=== PATIENT | male | born 1955 | race Caucasian/White ===

== ENCOUNTER 2018-10-01 15:08 | Emergency (ER) | payer OTHER, SELFPAY ==
--- OUTSIDE RECORDS SUMMARY | 2018-10-01 15:35 | XMS REPORT | Clinical Summary ---
:1955 Author Organization [facility] Address [address] [place] [address] Care Team Providers Name Role Phone Unavailable Primary Care Provider Unavailable Allergies Not on File Medications Not on file Active Problems Not on file Social History Tobacco Use Types Packs/Day Years Used Date Never Assessed Sex Assigned at Date Recorded Not on file Job Start Date Occupation Industry Not on file Not on file Not on file Travel History Travel Start Travel End No recent travel history available. Last Filed Vital Signs Not on file Plan of Treatment Not on file Results Not on fileafter 09/30/2017 Insurance Payer Benefit Plan / Group Subscriber ID Type Phone Address [employer] HMO POS QPOS xxxxxxxxxx HMO/POS [phone] (Work)
--- NOTE | 2018-10-01 17:37 | RAD REPORT ---
EXAM DESCRIPTION: RAD - Hip Right 2 View - 10/01/2018 5:28 pm CLINICAL HISTORY: Trauma, twisting injury, right hip pain COMPARISON: None. FINDINGS: AP and frog-leg views of the right hip were obtained. There is no fracture or dislocation . No acute or destructive bony process seen. No periarticular abnormality seen. No significant degen erative change. IMPRESSION: Negative right hip examination for acute findings.
--- NOTE | 2018-10-01 17:56 | ER ---
Nurse's Notes [facility] Name: Milton Leon Age: 63 yrs Sex: Male : 1955 Arrival Date: 10/01/2018 Time: 15:13 Bed 25 Private MD: Shana Meehan H Diagnosis: Strain of muscle, fascia and tendon of right hip Presentation: 10/01 15:20 Presenting complaint: Patient states: "I think I stepped wrong and twisted my body". Pt aa5 c/o pain to right hip pain, denies fall. 15:20 Transition of care: patient was not received from another setting of care. Onset of aa5 symptoms was October 01, 2018. Care prior to arrival: None. 15:20 Method Of Arrival: Wheelchair aa5 15:20 Acuity: SUZY 4 aa5 15:30 Risk Assessment: Do you want to hurt yourself or someone else? Patient reports no ca1 desire to harm self or others. 15:30 Initial Sepsis Screen: Does the patient meet any 2 criteria? No. Patient's initial ca1 sepsis screen is negative. Does the patient have a suspected source of infection? No. Patient's initial sepsis screen is negative. Historical: - Allergies: 15:54 Demerol; ca1 - Home Meds: 15:54 metoprolol tartrate 50 mg Oral tab 1 tab 2 times per day [Active]; hydrochlorothiazide ca1 25 mg Oral tab 1 tab once daily [Active]; metformin 500 mg Oral tab 1 tab 4 times a day [Active]; amlodipine 10 mg tab 1 tab once daily [Active]; Ibuprofen Oral for PRN [Active]; - PMHx: 15:54 Diabetes - NIDDM; Arthritis; Hypertension; ca1 - PSHx: 15:54 Hip Surgery L; Cholecystectomy; Knee Surgery Both; ca1 - Immunization history:: Flu vaccine is not up to date. - Social history:: Smoking status: Patient/guardian denies using tobacco. - Ebola Screening: : No symptoms or risks identified at this time. Screenin:34 Abuse screen: Denies threats or abuse. Denies injuries from another. Nutritional ca1 screening: No deficits noted. Tuberculosis screening: No symptoms or risk factors identified. Fall Risk None identified. Assessment: 15:34 General: Appears in no apparent distress. comfortable, Behavior is calm, cooperative, ca1 appropriate for age. Pain: Complains of pain in right hip Pain radiates to right thigh Pain currently is 3 out of 10 on a pain scale. at worst was 8 out of 10 on a pain scale. Pain began 30 min ago. Aggravated by weight bearing. Neuro: Level of Consciousness is awake, alert, obeys commands, Oriented to person, place, time, situation. Cardiovascular: Heart tones S1 S2 present Capillary refill < 3 seconds Patient's skin is warm and dry. Respiratory: Airway is patent Respiratory effort is even, unlabored, Respiratory pattern is regular, symmetrical, Breath sounds are clear bilaterally. GI: No deficits noted. No signs and/or symptoms were reported involving the gastrointestinal system. : No deficits noted. No signs and/or symptoms were reported regarding the genitourinary system. EENT: No deficits noted. No signs and/or symptoms were reported regarding the EENT system. Derm: Skin is intact, is healthy with good turgor, Skin is pink, warm \\T\\ dry. Musculoskeletal: Circulation, motion, and sensation intact. Capillary refill < 3 seconds. 16:11 Reassessment: Patient appears in no apparent distress at this time. Patient and/or ca1 family updated on plan of care and expected duration. Pain level reassessed. Patient is alert, oriented x 3, equal unlabored respirations, skin warm/dry/pink. Pending Xray. 16:39 Reassessment: Patient appears in no apparent distress at this time. Patient and/or ca1 family updated on plan of care and expected duration. Pain level reassessed. Patient is alert, oriented x 3, equal unlabored respirations, skin warm/dry/pink. 17:40 Reassessment: Patient appears in no apparent distress at this time. Patient and/or ca1 family updated on plan of care and expected duration. Pain level reassessed. Patient is alert, oriented x 3, equal unlabored respirations, skin warm/dry/pink. PT back from Xray. 18:00 Reassessment: Patient appears in no apparent distress at this time. Patient is alert, ca1 oriented x 3, equal unlabored respirations, skin warm/dry/pink. Vital Signs: 15:34 BP 138 / 67; Pulse 65; Resp 19; Temp 98.1(O); Pulse Ox 96% on R/A; Weight 141.07 kg; ca1 Height 6 ft. 0 in. (182.88 cm); Pain 3/10; 16:01 BP 119 / 53; Pulse 66; Resp 19; Pulse Ox 94% on R/A; ca1 16:39 BP 134 / 72; Pulse 66; Resp 19; Pulse Ox 96% on R/A; ca1 17:40 BP 158 / 71; Pulse 65; Resp 19; Pulse Ox 96% on R/A; ca1 18:06 BP 141 / 67; Pulse 64; Resp 19; Pulse Ox 97% on R/A; ca1 15:34 Body Mass Index 42.18 (141.07 kg, 182.88 cm) ca1 ED Course: 15:13 Patient arrived in ED. dl4 15:14 Shana Meehan DO is Private Physician. dl4 15:20 Arm band placed on Patient placed in an exam room, on a stretcher. aa5 15:25 Tk Kim PA is PHCP. jr8 15:25 Blake Delong MD is Attending Physician. jr8 15:30 Triage completed. aa5 15:33 Adwoa Lynne, [facility] is Primary Nurse. ca1 15:34 Patient has correct armband on for positive identification. Allergy band placed. Placed ca1 in gown. Bed in low position. Call light in reach. Pulse ox on. NIBP on. Warm blanket given. 15:34 No provider procedures requiring assistance completed. ca1 17:28 XRAY Hip RIGHT 2 view In Process Unspecified. EDMS 18:05 Patient did not have IV access during this emergency room visit. ca1 Administered Medications: No medications were administered Outcome: 17:56 Discharge ordered by . jr 18:05 Discharged to home ambulatory. ca1 18:05 Discharged to home ambulatory, with significant other. 18:05 Condition: stable 18:05 Discharge instructions given to patient, Instructed on discharge instructions, follow up and referral plans. medication usage, Demonstrated understanding of instructions, follow-up care, medications, Prescriptions given X 1. 18:11 Patient left the ED. ca1 Signatures: Dispatcher [employer] EDND Sarita Rock, RN RN aa5 Tk Kim PA PA jr8 Rafael Hancock dl4 Adwoa Lynne RN RN ca1
--- NOTE | 2018-10-01 17:56 | EDPHYS ---
Physician Documentation [facility] Name: Milton Leon Age: 63 yrs Sex: Male : 1955 Arrival Date: 10/01/2018 Time: 15:13 Bed 25 Private MD: Shana Meehan H ED Physician Blake Delong HPI: 10/01 15:31 This 63 yrs old Male presents to ER via Wheelchair with complaints of Hip jr8 Injury. 15:31 The patient or guardian reports pain. that occurred at work, sustained from twisting jr8 motion. The complaints affect the right leg. Onset: The symptoms/episode began/occurred acutely, today. Modifying factors: The symptoms are alleviated by nothing, the symptoms are aggravated by flexion, internal rotation. Associated signs and symptoms: Loss of consciousness: the patient experienced no loss of consciousness, Pertinent positives: None. Severity of symptoms: At their worst the symptoms were mild, in the emergency department the symptoms are unchanged. The patient has not experienced similar symptoms in the past. The patient has not recently seen a physician. Patient stated that he was coming off of a step and turned to the left. When he did this caused sharp pain to right lateral hip. Pain since then. Able to bear weight but worse with flexion of hip . Historical: - Allergies: 15:54 Demerol; ca1 - Home Meds: 15:54 metoprolol tartrate 50 mg Oral tab 1 tab 2 times per day [Active]; hydrochlorothiazide ca1 25 mg Oral tab 1 tab once daily [Active]; metformin 500 mg Oral tab 1 tab 4 times a day [Active]; amlodipine 10 mg tab 1 tab once daily [Active]; Ibuprofen Oral for PRN [Active]; - PMHx: 15:54 Diabetes - NIDDM; Arthritis; Hypertension; ca1 - PSHx: 15:54 Hip Surgery L; Cholecystectomy; Knee Surgery Both; ca1 - Immunization history:: Flu vaccine is not up to date. - Social history:: Smoking status: Patient/guardian denies using tobacco. - Ebola Screening: : No symptoms or risks identified at this time. ROS: 15:31 Eyes: Negative for injury, pain, redness, and discharge, ENT: Negative for injury, jr8 pain, and discharge, Neck: Negative for injury, pain, and swelling, Cardiovascular: Negative for chest pain, palpitations, and edema, Respiratory: Negative for shortness of breath, cough, wheezing, and pleuritic chest pain, Abdomen/GI: Negative for abdominal pain, nausea, vomiting, diarrhea, and constipation, Back: Negative for injury and pain, Skin: Negative for injury, rash, and discoloration, Neuro: Negative for headache, weakness, numbness, tingling, and seizure. 15:31 MS/extremity: Positive for pain, of the right hip. Exam: 15:31 Eyes: Pupils equal round and reactive to light, extra-ocular motions intact. Lids and jr8 lashes normal. Conjunctiva and sclera are non-icteric and not injected. Cornea within normal limits. Periorbital areas with no swelling, redness, or edema. ENT: Nares patent. No nasal discharge, no septal abnormalities noted. Tympanic membranes are normal and external auditory canals are clear. Oropharynx with no redness, swelling, or masses, exudates, or evidence of obstruction, uvula midline. Mucous membranes moist. Neck: Trachea midline, no thyromegaly or masses palpated, and no cervical lymphadenopathy. Supple, full range of motion without nuchal rigidity, or vertebral point tenderness. No Meningismus. Cardiovascular: Regular rate and rhythm with a normal S1 and S2. No gallops, murmurs, or rubs. Normal PMI, no JVD. No pulse deficits. Respiratory: Lungs have equal breath sounds bilaterally, clear to auscultation and percussion. No rales, rhonchi or wheezes noted. No increased work of breathing, no retractions or nasal flaring. Abdomen/GI: Soft, non-tender, with normal bowel sounds. No distension or tympany. No guarding or rebound. No evidence of tenderness throughout. Back: No spinal tenderness. No costovertebral tenderness. Full range of motion. Skin: Warm, dry with normal turgor. Normal color with no rashes, no lesions, and no evidence of cellulitis. Neuro: Awake and alert, GCS 15, oriented to person, place, time, and situation. Cranial nerves II-XII grossly intact. Motor strength 5/5 in all extremities. Sensory grossly intact. Cerebellar exam normal. Normal gait. 15:31 Musculoskeletal/extremity: Extremities: grossly normal except: pain, Mild tenderness and pain to right greater trochanter region of hip. Mild pain with flexion and external rotation of hip, ROM: intact in all extremities, full active range of motion, full passive range of motion, Circulation is intact in all extremities. Sensation intact. Weight bearing: able to fully bear weight, without difficulty. Vital Signs: 15:34 BP 138 / 67; Pulse 65; Resp 19; Temp 98.1(O); Pulse Ox 96% on R/A; Weight 141.07 kg; ca1 Height 6 ft. 0 in. (182.88 cm); Pain 3/10; 16:01 BP 119 / 53; Pulse 66; Resp 19; Pulse Ox 94% on R/A; ca1 16:39 BP 134 / 72; Pulse 66; Resp 19; Pulse Ox 96% on R/A; ca1 17:40 BP 158 / 71; Pulse 65; Resp 19; Pulse Ox 96% on R/A; ca1 18:06 BP 141 / 67; Pulse 64; Resp 19; Pulse Ox 97% on R/A; ca1 15:34 Body Mass Index 42.18 (141.07 kg, 182.88 cm) ca1 MDM: 15:25 Patient medically screened. jr8 17:55 Data reviewed: vital signs, nurses notes, radiologic studies, plain films. Data jr8 interpreted: Pulse oximetry: on room air is 96 %. Interpretation: normal. Counseling: I had a detailed discussion with the patient and/or guardian regarding: the historical points, exam findings, and any diagnostic results supporting the discharge/admit diagnosis, radiology results, the need for outpatient follow up, a family practitioner, to return to the emergency department if symptoms worsen or persist or if there are any questions or concerns that arise at home. 10/01 15:31 Order name: XRAY Hip RIGHT 2 view; Complete Time: 17:55 jr8 Administered Medications: No medications were administered Disposition: 10/02 07:16 Co-signature as Attending Physician, Blake Delong MD I agree with the assessment and kdr plan of care. Disposition: 10/01/18 17:56 Discharged to Home. Impression: Strain of muscle, fascia and tendon of right hip. - Condition is Stable. - Discharge Instructions: Hip Pain. - Prescriptions for Mobic 7.5 mg Oral Tablet - take 1 tablet by ORAL route once daily As needed take with food; 20 tablet. - Medication Reconciliation Form, Thank You Letter, Antibiotic Education, Prescription Opioid Use, Work release form form. - Follow up: Private Physician; When: 5 - 6 days; Reason: Recheck today's complaints, Continuance of care, Re-evaluation by your physician. - Problem is new. - Symptoms have improved. Signatures: Dispatcher [employer] EDBlake Mejias MD MD [facility] Tk Kim PA PA jr8 Adwoa Lynne RN RN ca1 Corrections: (The following items were deleted from the chart) 10/01 18:11 17:56 10/01/2018 17:56 Discharged to Home. Impression: Strain of muscle, fascia and ca1 tendon of right hip. Condition is Stable. Forms are Medication Reconciliation Form, Thank You Letter, Antibiotic Education, Prescription Opioid Use. Follow up: Private Physician; When: 5 - 6 days; Reason: Recheck today's complaints, Continuance of care, Re-evaluation by your physician. Problem is new. Symptoms have improved. jr8
[2018-10-01 18:15] VITALS: TEMP 98.1
[2018-10-01 18:20] VITALS: BP 141/67; O2SAT 97
== END 2018-10-01 18:11 | disposition home or self-care (01) ==
LOC: ER 15:08
DX: S76.011A Strain of muscle, fascia and tendon of right hip, initial encounter (principal); X50.1XXA Overexertion from prolonged static or awkward postures, initial encounter; E11.9 Type 2 diabetes mellitus without complications; I10 Essential (primary) hypertension; Z88.5 Allergy status to narcotic agent; Z79.84 Long term (current) use of oral hypoglycemic drugs
CPT/HCPCS: 99283

== ENCOUNTER 2024-06-17 12:48 | Emergency (ER) | payer OTHER ==
--- OUTSIDE RECORDS SUMMARY | 2024-06-17 12:53 | XMS REPORT | Continuity of Care Document ---
Author Name Unknown Address [address] [place] [address] [facility] Address 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 Name Role Phone Zoran KELLY, Jez Alexander Primary Care Physician [phone] 1, [facility] Sleep Lab Bed Attending Clinician Wilson Rubin MD Attending Clinician WILSON STINSON Attending Clinician WILSON Rubi Attending Clinician Mark pina Doctor Unassigned, [place] Attending Clinician U navailable Payers Payer Name Policy Type Policy Number Effective Date Expirati on Date Source Allergies, Adverse Reactions, Alerts Allergy Name Allergy Type Status Severity Reaction(s) Onset Date Inactive Date Treating Clinician Comments Source NO KNOWN ALLERGIE S Drug Class Active [facility] Social History Social Habit Start Date Stop Date Quantity Comments Source Sexual orientation [facility] Sex Assigned At 1955 00:00:00 1955 00:00:00 [facility] Smoking Status Start Date Stop Date Source Tobacco smoking consumption unknown [facility] Procedures Procedure Date / Time Performed Performing Clinicia n Source SLEEP STUDY DATA REPORT 2023-06-19 06:01:00 Doctor Unassigned, [place] [facility] Encounters Start Date/Time End Date/Time Encounter Type Admission Type Attending Clinicians Care Facility Care Department Encounter ID Source 2023-06-19 20:00:00 2023-06-19 22:30:00 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
[2024-06-17 13:40] LABS: Absolute Basophils 0.1 K/uL (0-0.5); Absolute Eosinophils 0.8 K/uL (0-0.5); Absolute Monocytes 0.5 K/uL (0.1-1.3); Absolute Neutrophil 6.1 K/uL (1.8-8.0); Eosinophils % 9.3 % (0-4.4); Hematocrit 36.6 % (39.6-49.0); Hemoglobin 11.9 g/dL (13.6-17.9); Lymphocytes % 12.2 % (15.3-44.8); MCH 27.8 pg (27.0-35.0); MCHC 32.5 g/dL (32.0-36.0); MCV 85.6 fL (80-100); MPV 7.9 fL (7.6-11.3); Monocytes % 5.6 % (3.3-12.3); Neutrophils % 71.9 % (41.7-73.7); Platelets 198 thou/uL (152-406); RBC Red Blood Cell Count 4.28 M/uL (4.33-5.43); Red Cell Distribution Width 15.9 % (12.1-15.2)
[2024-06-17 13:52] LABS: Sqamous Epithelial None Seen /HPF (None Seen); Urine Bacteria None Seen /HPF (<20); Urine Bilirubin NEGATIVE (Negative); Urine Blood 3+ (OVER) (Negative); Urine Clarity Extremely Turbid (Clear); Urine Color Brown (Yellow); Urine Culture Reflex Order REFLEXED; Urine Glucose NEGATIVE (Negative); Urine Ketones NEGATIVE (Negative); Urine Micro Reflex YN NO BILL MICROSCOPIC; Urine Nitrite NEGATIVE (Negative); Urine Protein 2+ (Negative); Urine RBC >50 /HPF (None Seen); Urine Urobilinogen Normal (Normal); Urine WBC >50 /HPF (<5); Urine pH 5.5 (5.0-7.0)
[2024-06-17 14:04] LABS: ALT/SGPT 23 U/L (16-61); AST/SGOT 18 U/L (15-37); Albumin 3.4 g/dL (3.4-5.0); Albumin/Globulin Ratio 0.8 (1.1-1.8); Alkaline Phosphatase 89 U/L (45-117); Anion Gap 12.8 mEq/L (5.0-15.0); BUN Blood Urea Nitrogen 39 mg/dL (7-18); Bicarbonate 22 mEq/L (21-32); Bilirubin Direct < 0.2 mg/dL (0-0.2); Bilirubin Indirect, Calculated 0.2 mg/dL (0.2-0.8); Bilirubin Total 0.4 mg/dL (0.2-1.0); Globulin 4.1 g/dL (2.3-3.5); Glomerular Filtration Rate 35 ml/min (=/>90); Glucose Level 109 mg/dL (74-106); Magnesium 1.8 mg/dL (1.6-2.4); Potassium 4.8 mEq/L (3.5-5.1); Protein, Total 7.5 g/dL (6.4-8.2); Sodium Level 135 mEq/L (136-145); Troponin High Sensitivity 6.5 pg/mL (<58.9)
[2024-06-17] MEDS ORDERED: NA CHLORIDE 0.9% 1,000 ML ONE (14:05)
--- NOTE | 2024-06-17 15:39 | RAD REPORT ---
EXAMINATION: CT Abdomen Pelvis Wo Contrast CLINICAL INDICATION: Male, 69 years old. HEMATURIA TECHNIQUE: CT abdomen and pelvis was performed, without IV contrast, as per department protocol. Axia l, sagittal and coronal reconstructions were obtained. One or more of the following dose reduction techniques were used: Automated exposure control, adjustment of the mA and kV according to the patien t size, and iterative reconstruction. Unless otherwise specified, incidental findings do not require dedicated imaging follow-up. COMPARISON: No prior exam. FINDINGS: The lack of intravenous contrast limits the sensitivity of this exam for evaluation of solid visceral organs, vascular structures, and retroperitoneum. LOWER CHEST: The visualized lung bases are clear. LIVER: Normal in size and contour. No focal lesion. BILIARY SYSTEM: Status post cholecystectomy. SPLEEN: Normal size. No focal lesion. PANCREAS: No mass, ductal dilation, or lidya-pancreatic fluid. ADRENALS: Normal; no mass. KIDNEYS AND URETERS: Asymmetric atrophy and cortical thinning on the left. No hydronephrosis. Bilater al cortical renal cysts, largest at the right superior pole measuring 3.8 cm. Numerous bilateral renal calculi, largest on the left is at the lower pole measuring 2.1 cm, and on the right is at the interpolar region measuring 1.8 cm. URINARY BLADDER: Dependent 1.6 cm calculus left of midline, could be and the left vesicoureteral junc tion. Intense streak artifact related to left hip prosthesis limits evaluation. No other wall contour abnormalities allowing for this limitation. GASTROINTESTINAL TRACT: No evidence of bowel obstruction, significant free fluid, free air or abscess . Distal colonic diverticulosis. APPENDIX: Normal appendix. LYMPH NODES: No lymphadenopathy. MUSCULOSKELETAL: No acute or suspicious osseous abnormality. ADDITIONAL FINDINGS: None. IMPRESSION: No acute or concerning abnormalities in the abdomen or pelvis, with evaluation limited by lack of IV contrast. Large bilateral nonobstructing renal calculi, and a 1.6 cm calculus in the bladder, although it lies close to the vesicoureteral junction. No evidence of obstruction.
--- NOTE | 2024-06-17 15:58 | EDPHYS ---
Physician Documentation [facility] [place], [place] Name: Milton Leon Age: 69 yrs Sex: Male : 1955 Arrival Date: 06/17/2024 Time: 12:48 Bed 17 Private MD: ED Physician Areli Schmidt HPI: 06/17 13:21 This 69 yrs old Male presents to ER via Ambulatory with complaints of Abnormal Lab sb4 Results. 13:21 Patient states that he had routine blood work done 3 days ago. States that over the sb4 past few days, he has been feeling kind of weak and tired. States that he looked at his lab results today and noticed a lot of values out of range. He called his PCP, Dr. Meehan, who reviewed them and told him to come to the ED. Lab abnormalities significant for an elevated BUN and creatinine, elevated potassium at 6.8, and decreased GFR. He did bring his lab results from 1 year ago to compare. Patient denies any chest pain or shortness of breath. He denies any history of elevated potassium levels. Historical: - Allergies: 13:07 Bees; ko1 13:07 Demerol; ko1 - PMHx: 13:07 Arthritis; Diabetes - NIDDM; Hypertension; ko1 - Immunization history:: Adult Immunizations unknown. - Infectious Disease History:: Denies. - Social history:: Smoking status: Patient denies any tobacco usage or history of. ROS: 13:21 Constitutional: Negative for fever, chills, and weight loss, sb4 13:21 : Positive for hematuria, 13:21 Neuro: Positive for weakness, 13:21 All other systems are negative, Exam: 13:21 Constitutional: This is a well developed, well nourished patient who is awake, alert, sb4 and in no acute distress. Head/Face: Normocephalic, atraumatic. Eyes: Extra-ocular motions intact. Periorbital areas with no swelling, redness, or edema. ENT: Mucous membranes moist. Cardiovascular: Regular rate and rhythm with a normal S1 and S2. Respiratory: No increased work of breathing, no retractions or nasal flaring. Abdomen/GI: Soft, non-tender, no distension. MS/ Extremity: Pulses equal, no cyanosis. Neurovascular intact. Full, normal range of motion. Vital Signs: 13:06 BP 136 / 65; Pulse 75; Resp 19; Temp 97; Pulse Ox 99% ; ko1 14:30 BP 135 / 61; Pulse 75; Resp 16; Pulse Ox 97% on R/A; db 15:00 BP 140 / 68; Pulse 74; Resp 16; Pulse Ox 97% on R/A; db 16:00 BP 148 / 62; Pulse 79; Resp 16; Pulse Ox 97% on R/A; db MDM: 13:10 Medical Screening Exam initiated sb4 15:55 Data reviewed: vital signs, nurses notes, lab test result(s), radiologic studies, and sb4 as a result, I will discharge patient. Counseling: I had a detailed discussion with the patient and/or guardian regarding the historical points, exam findings, and any diagnostic results supporting the discharge/admit diagnosis, lab results, radiology results, the need for outpatient follow up, for definitive care, to return to the emergency department if symptoms worsen or persist or if there are any questions or concerns that arise at home. ED course: Potassium was 4.8. Creatinine is slightly bumped compared to baseline. Hydrated with 1 L of fluid and encouraged to continue drinking lots of fluids at home and to have blood work rechecked in 2 weeks. Urine did have marita blood in it but CT shows bilateral nonobstructing kidney stones and a stone in the bladder, suggestive of a recently passed stone. UA is questionable for UTI. Will treat with antibiotics. Instructed patient to return to the ED if blood in urine does not resolve. 06/17 13:20 Order name: Basic Metabolic Panel; Complete Time: 14:06 sb4 06/17 13:20 Order name: CBC with Diff; Complete Time: 14:00 sb4 06/17 13:20 Order name: LFT's; Complete Time: 14:06 sb4 06/17 13:20 Order name: Magnesium; Complete Time: 14:06 sb4 06/17 13:20 Order name: Troponin HS; Complete Time: 14:06 sb4 06/17 13:20 Order name: UAM; Complete Time: 13:54 sb4 06/17 13:56 Order name: Urine Culture; Complete Time: 13:43 EDMS 06/17 14:07 Order name: CT Abd/Pelvis - Without Contrast; Complete Time: 15:41 sb4 06/17 13:20 Order name: IV Saline Lock; Complete Time: 13:33 sb4 06/17 13:20 Order name: Labs collected and sent; Complete Time: 13:33 sb4 Administered Medications: 14:10 Drug: NS 0.9% IV 1000 ml IV at 1000 ml once; to be given as a bolus over 60 minutes db Route: IV; Rate: 1000 ml; Site: left antecubital; 16:36 Follow up: Response: No adverse reaction; IV Status: Completed infusion; IV Intake: db 1000ml Disposition Summary: 06/17/24 15:58 Discharge Ordered Notes: Location: Home sb4 Problem: new sb4 Symptoms: have improved sb4 Condition: Stable sb4 Diagnosis - UTI/ Urinary tract infection, site not specified sb4 - Calculus of kidney sb4 - Gross hematuria sb4 Followup: sb4 - With: Private Physician - When: 2 weeks - Reason: Recheck today's complaints, Re-evaluation by your physician, repeat labs Discharge Instructions: - Discharge Summary Sheet sb4 - Hematuria, Adult sb4 - Kidney Stones sb4 - Urinary Tract Infection, Adult, Tghi-xj-Hash sb4 Forms: - Antibiotic Education sb4 - Patient Portal Instructions sb4 - Leadership Thank You Letter sb4 Prescriptions: - Cipro 500 mg Oral Tablet - take 1 tablet ORAL route every 12 hours for 7 days; 14 tablet; Refills: 0, sb4 Product Selection Permitted Signatures: Dispatcher [employer] EDRoxanna Powell, RN RN koMegan North RN RN Alexandra Wood PAJulio CesarC PAJulio CesarC sb4 Corrections: (The following items were deleted from the chart) 13:21 13:21 BASIC METABOLIC PANEL+C.LAB.BRZ ordered. EDMS EDMS 13:21 13:21 CBC+H.LAB.BRZ ordered. EDMS EDMS 13:21 13:21 HEPATIC FUNCTION+C.LAB.BRZ ordered. EDMS EDMS 13:21 13:21 MAGNESIUM+C.LAB.BRZ ordered. EDMS EDMS 13:21 13:21 Troponin High Sensitivity+C.LAB.BRZ ordered. EDMS EDMS 13:21 13:21 Urinalysis W/Microscopic+U.LAB.BRZ ordered. EDMS EDMS
--- NOTE | 2024-06-17 15:58 | ER ---
Nurse's Notes [facility] Name: Milton Leon Age: 69 yrs Sex: Male : 1955 Arrival Date: 06/17/2024 Time: 12:48 Bed 17 Private MD: Diagnosis: UTI/ Urinary tract infection, site not specified;Calculus of kidney;Gross hematuria Presentation: 06/17 13:06 Chief complaint: Patient states: abnormal labs results, K 6.8. Coronavirus screen: At ko1 this time, the client does not indicate any symptoms associated with coronavirus-19. Ebola Screen: No symptoms or risks identified at this time. Initial Sepsis Screen: Does the patient meet any 2 criteria? No. Patient's initial sepsis screen is negative. Does the patient have a suspected source of infection? No. Patient's initial sepsis screen is negative. Risk Assessment: Do you want to hurt yourself or someone else? Patient reports no desire to harm self or others. Onset of symptoms was June 17, 2024. 13:06 Method Of Arrival: Ambulatory ko1 13:06 Acuity: SUZY 3 ko1 Triage Assessment: 13:07 General: Appears in no apparent distress. Behavior is calm, cooperative, appropriate ko1 for age. Pain: Denies pain. Historical: - Allergies: 13:07 Bees; ko1 13:07 Demerol; ko1 - PMHx: 13:07 Arthritis; Diabetes - NIDDM; Hypertension; ko1 - Immunization history:: Adult Immunizations unknown. - Infectious Disease History:: Denies. - Social history:: Smoking status: Patient denies any tobacco usage or history of. Screenin:35 [facility] ED Fall Risk Assessment (Adult) History of falling in the last 3 months, db including since admission No falls in past 3 months (0 pts) Confusion or Disorientation No (0 pts) Intoxicated or Sedated No (0 pts) Impaired Gait No (0 pts) Mobility Assist Device Used No (0 pt) Altered Elimination No (0 pt) Score/Fall Risk Level 0 - 2 = Low Risk Oriented to surroundings, Maintained a safe environment. Abuse screen: Denies threats or abuse. Denies injuries from another. Nutritional screening: No deficits noted. Tuberculosis screening: No symptoms or risk factors identified. Assessment: 14:35 Reassessment: Patient appears in no apparent distress at this time. Patient and/or db family updated on plan of care and expected duration. Pain level reassessed. Patient is alert, oriented x 3, equal unlabored respirations, skin warm/dry/pink. General: Appears in no apparent distress. comfortable, Behavior is calm, cooperative. Pain: Denies pain. Neuro: Level of Consciousness is awake, alert, obeys commands, Oriented to person, place, time, situation. Respiratory: Airway is patent Respiratory effort is even, unlabored, Respiratory pattern is regular, symmetrical. 15:30 Reassessment: Patient appears in no apparent distress at this time. Patient and/or db family updated on plan of care and expected duration. Pain level reassessed. Patient is alert, oriented x 3, equal unlabored respirations, skin warm/dry/pink. 16:35 Reassessment: Patient appears in no apparent distress at this time. Patient and/or db family updated on plan of care and expected duration. Pain level reassessed. Patient is alert, oriented x 3, equal unlabored respirations, skin warm/dry/pink. Patient states feeling better. Vital Signs: 13:06 BP 136 / 65; Pulse 75; Resp 19; Temp 97; Pulse Ox 99% ; ko1 14:30 BP 135 / 61; Pulse 75; Resp 16; Pulse Ox 97% on R/A; db 15:00 BP 140 / 68; Pulse 74; Resp 16; Pulse Ox 97% on R/A; db 16:00 BP 148 / 62; Pulse 79; Resp 16; Pulse Ox 97% on R/A; db ED Course: 12:51 Patient arrived in ED. al6 12:58 Alexandra Fuchs PA-C is PHCP. sb4 12:58 Areli Schmidt MD is Attending Physician. sb4 13:07 Triage completed. ko1 13:07 Arm band placed on right wrist. Patient placed in an exam room, on a stretcher, on ko1 microsoft exchange administrator, on pulse oximetry, Patient notified of wait time. 13:33 UAM Sent. bc6 13:33 Basic Metabolic Panel Sent. bc6 13:33 CBC with Diff Sent. bc6 13:33 LFT's Sent. bc6 13:33 Magnesium Sent. bc6 13:33 Troponin HS Sent. bc6 13:33 Initial lab(s) drawn, by me, sent to lab. Inserted saline lock: 20 gauge in left bc6 antecubital area, using aseptic technique. Blood collected. Flushed with 10 mL NS. 14:05 Megan Juarez, RN is Primary Nurse. db 14:32 CT Abd/Pelvis - Without Contrast In Process Unspecified. EDMS 14:35 Patient moved back from CT. db 16:35 Patient has correct armband on for positive identification. Bed in low position. Call db light in reach. Side rails up X 1. Provided Education on: DISCHARGE AND FOLLOWUP. Pulse ox on. NIBP on. Warm blanket given. Pillow given. 16:35 No provider procedures requiring assistance completed. IV discontinued, intact, db bleeding controlled, No redness/swelling at site. Administered Medications: 14:10 Drug: NS 0.9% IV 1000 ml IV at 1000 ml once; to be given as a bolus over 60 minutes db Route: IV; Rate: 1000 ml; Site: left antecubital; 16:36 Follow up: Response: No adverse reaction; IV Status: Completed infusion; IV Intake: db 1000ml Medication: 16:35 VIS not applicable for this client. db Intake: 16:36 IV: 1000ml; Total: 1000ml. db Outcome: 15:58 Discharge ordered by . sb4 16:35 Discharged to home ambulatory, with family, db 16:35 Condition: stable 16:35 Discharge instructions given to patient, family, Instructed on discharge instructions, follow up and referral plans. Prescriptions given X 1, 16:36 Patient left the ED. db Signatures: Dispatcher [employer] EDSC Roxanna Reyes, RN RN ko1 Megan Juarez, RN RN Alexandra Wood PA-C PADanielle sb4 Michaela Wall bc6 Chela Kang al6
[2024-06-17 22:37] VITALS: TEMP 97
[2024-06-17 22:38] VITALS: O2SAT 97
[2024-06-17 22:40] VITALS: BP 148/62
== END 2024-06-17 16:36 | disposition home or self-care (01) ==
LOC: ER 12:48
DX: N39.0 Urinary tract infection, site not specified (principal); N20.0 Calculus of kidney; E11.9 Type 2 diabetes mellitus without complications; I10 Essential (primary) hypertension
CPT/HCPCS: 96361; 87088; 85025; 81001; 87086; 80048; 36415; 83735; 80076; 84484; 74176; 96360; 99285; J7030

== ENCOUNTER 2024-10-04 12:15 | Inpatient (IN) | payer BC, OTHER ==
--- NOTE | 2024-10-04 13:11 | RAD REPORT ---
EXAMINATION: ONE VIEW CHEST XR CLINICAL INDICATION: ground level fall, L rib injury, L shoulder inj TECHNIQUE: Frontal chest projection is submitted. Examination is limited by patient positioning and t echnique. COMPARISON: 12/08/2023 FINDINGS: The lungs are well inflated and clear. The heart is upper limit of normal in size. Left lateral thora cic cage irregularity, incompletely assessed. IMPRESSION: No acute intrathoracic abnormalities.
--- NOTE | 2024-10-04 13:13 | RAD REPORT ---
EXAMINATION: XR LEFT SHOULDER CLINICAL INDICATION: Male, 69 years old. ground level fall, L rib injury, L shoulder inj TECHNIQUE: Multiple views of the left shoulder were obtained. COMPARISON: No prior exam. FINDINGS: Scho-ma-[id number] AC joint and glenohumeral joint arthritic changes. No shoulder fracture or dislocation. Probable left lateral thoracic rib fractures, incompletely assessed.
--- NOTE | 2024-10-04 13:15 | RAD REPORT ---
EXAMINATION: LEFT RIB SERIES INDICATION: ground level fall, L rib injury, L shoulder inj COMPARISON: None TECHNIQUE: Frontal and multiple oblique views of the LEFT ribs. FINDINGS: Minimal fracture left lateral second rib suspected. Moderately displaced posterior left sixth rib fra cture. Mildly displaced posterior left seventh rib fracture also present. Slightly displaced lateral left eighth rib fracture. No measurable pneumothorax.
[2024-10-04] MEDS ORDERED: ACETAMINOPHEN 500 MG TAB ONE (13:24)
[2024-10-04] MEDS ORDERED: LIDOCAINE 4% PATCH ONE (13:25)
[2024-10-04] MEDS ORDERED: MORPHINE 4 MG/ML SYR ONE (13:25)
[2024-10-04] MEDS ORDERED: methocarbamoL 500 MG TAB ONE (13:25)
--- NOTE | 2024-10-04 13:44 | EDPHYS ---
Physician Documentation [facility] Name: Milton Leon Age: 69 yrs Sex: Male : 1955 Arrival Date: 10/04/2024 Time: 12:15 Bed 16 Private MD: ED Physician Phong Herron HPI: 10/04 12:25 This 69 yrs old Male presents to ER via EMS with complaints of Fall Injury. ec2 12:25 Patient arrives today for evaluation after a ground-level fall. States that he was ec2 working on some yard work and subsequently had fallen over and injured his left ribs. Patient reports no LOC, no head strike, not on blood thinners. Denies any abdominal pain.. Historical: - Allergies: 13:47 Bees; ph 13:47 Demerol; ph - PMHx: 13:47 Arthritis; Diabetes - NIDDM; Hypertension; ph - Immunization history:: Adult Immunizations unknown. - Infectious Disease History:: Denies. - Social history:: Smoking status: Patient denies any tobacco usage or history of. ROS: 12:25 Constitutional: as per hpi ec2 Exam: 12:25 Constitutional: GEN: NAD Head: atraumatic Eyes: EOMI Ears: External ears are ec2 normal. CV: regular rate LUNGS: no respiratory distress ABD: non-distended SKIN: no evidence of rashes MSK: Left chest wall with TTP, no deformities or crepitus appreciated. Left shoulder with no deformities noted. No C/T/L spine deformities. Vital Signs: 12:21 BP 136 / 76; Pulse 58; Resp 18; Temp 97.5; Pulse Ox 99% on R/A; Weight 132 kg; Height 5 ph ft. 11 in. ; 14:28 BP 116 / 71; Pulse 58; Resp 18; Pulse Ox 99% on R/A; ph 16:00 BP 124 / 78; Pulse 59; Resp 18; Temp 97.8; Pulse Ox 98% on R/A; ph 12:21 Body Mass Index 40.59 (132.00 kg, 180.34 cm) ph MDM: 12:16 Medical Screening Exam initiated ec2 12:26 Data reviewed: vital signs, nurses notes. ED course: Patient arrives today for ec2 evaluation after ground-level fall. Examination yields MSK findings as above. Will obtain radiographs. DDx includes contusion, fracture, doubt dislocation. Will treat the patient's pain as well.. 13:43 ED course: I discussed the case with general surgery, Dr. Price who will help consult ec2 on the patient, will admit primarily to medicine for further management.. 14:25 ED course: EKG independently reviewed and interpreted by me, shows normal sinus rhythm, ec2 rate of 59, no acute ST segment elevations, no hyperacute T waves, right bundle branch block noted.. 10/04 13:26 Order name: CBC with Diff; Complete Time: 14:16 ec2 10/04 13:26 Order name: BMP; Complete Time: 14:16 ec2 10/04 16:06 Order name: Basic Metabolic Panel EDMS 10/04 16:06 Order name: Basic Metabolic Panel EDMS 10/04 16:06 Order name: Basic Metabolic Panel EDMS 10/04 16:06 Order name: Basic Metabolic Panel EDMS 10/04 16:06 Order name: Basic Metabolic Panel EDMS 10/04 16:06 Order name: Basic Metabolic Panel EDMS 10/04 16:06 Order name: CBC with Automated Diff EDMS 10/04 16:06 Order name: CBC with Automated Diff EDMS 10/04 16:06 Order name: CBC with Automated Diff EDMS 10/04 16:06 Order name: CBC with Automated Diff EDMS 10/04 16:06 Order name: CBC with Automated Diff EDMS 10/04 16:06 Order name: CBC with Automated Diff EDMS 10/04 12:17 Order name: CXR XRAY; Complete Time: 13:17 ec2 10/04 12:17 Order name: Ribs Left XRAY; Complete Time: 13:17 ec2 10/04 12:17 Order name: Shoulder Left (2 View) XRAY; Complete Time: 13:17 ec2 10/04 13:26 Order name: IV; Complete Time: 13:48 ec2 10/04 14:16 Order name: EKG - Nurse/Tech; Complete Time: 14:25 ec2 Administered Medications: 13:26 CANCELLED (Physician Discretion): fentanyl (pf)100 mcg IVP once ec2 13:47 Drug: Methocarbamol PO 500 mg PO once Route: PO; ph 14:30 Follow up: Response: No adverse reaction ph 13:48 Drug: Acetaminophen PO 1000 mg PO once Route: PO; ph 17:02 Follow up: Response: No adverse reaction ph 13:48 Drug: Lidoderm Topical Patch 5 % (700 mg/patch) 1 patches Topical once; leave on for 12 ph hours; cover most painful area; may cut into smaller pieces Route: Topical; Site: affected area; 17:02 Follow up: Response: No adverse reaction ph 13:48 Drug: morphine IM 4 mg IM once {Note: GIVEN IVP TO LAC.} Route: IM; Site: Other; ph 14:30 Follow up: Response: No adverse reaction; Pain is decreased ph 14:45 Drug: NS 0.9% IV 1000 ml IV at 1000 ml once; to be given as a bolus over 60 minutes ph Route: IV; Rate: 1000 ml; Site: left antecubital; 16:00 Follow up: Response: No adverse reaction; IV Status: Completed infusion; IV Intake: ph 1000ml 15:15 Drug: Lokelma Powder 10 grams PO once Route: PO; ph 15:30 Follow up: Response: No adverse reaction ph Disposition Summary: 10/04/24 13:44 Hospitalization Ordered Notes: Hospitalization Status: Inpatient Admission ec2 Provider: Mary Jane Garcia ec2 Location: Telemetry/MedSurg (Inpatient) ec2 Condition: Stable ec2 Problem: new ec2 Symptoms: have improved ec2 Bed/Room Type: Standard ec2 Room Assignment: 222(10/04/24 16:15) bd Diagnosis - Multiple fractures of ribs, left side ec2 - Hyperkalemia ec2 Discharge Instructions: - Discharge Summary Sheet ec2 - Rib Contusion ec2 Forms: - Medication Reconciliation Form ec2 - SBAR form ec2 - Leadership Thank You Letter ec2 Prescriptions: - methocarbamol 500 mg Oral tablet - take 2 tablets ORAL route 4 times per day; 30 tablet; Refills: 0, Product ec2 Selection Permitted Signatures: Dispatcher [employer] Mary Jacob Patricia, RN RN ph Phong Herron MD MD ec2 Corrections: (The following items were deleted from the chart) 13:26 13:26 fentaNYL (PF) IVP 100 mcg IVP once ordered. ec2 ec2 13:26 13:26 CBC+H.LAB.BRZ ordered. EDMS EDMS 13:26 13:26 BASIC METABOLIC PANEL+FABIANZ ordered. EDMS EDMS 16:15 13:44 ec2 bd
--- NOTE | 2024-10-04 13:44 | ER ---
Nurse's Notes [facility] Name: Milton Leon Age: 69 yrs Sex: Male : 1955 Arrival Date: 10/04/2024 Time: 12:15 Bed 16 Private MD: Diagnosis: Multiple fractures of ribs, left side;Hyperkalemia Presentation: 10/04 12:21 Chief complaint: EMS states: Was pulling a weed, lost his balance and fell onto L side, ph c/o pain in L mid back and L ribs, no LOC, does not take blood trhinners. Coronavirus screen: Vaccine status: Patient reports being unvaccinated. Ebola Screen: No symptoms or risks identified at this time. Initial Sepsis Screen: Does the patient meet any 2 criteria? No. Patient's initial sepsis screen is negative. Does the patient have a suspected source of infection? No. Patient's initial sepsis screen is negative. Risk Assessment: Do you want to hurt yourself or someone else? Patient reports no desire to harm self or others. Onset of symptoms was October 04, 2024. 12:21 Method Of Arrival: EMS: [facility] ph 12:21 Acuity: SUZY 4 ph Historical: - Allergies: 13:47 Bees; ph 13:47 Demerol; ph - PMHx: 13:47 Arthritis; Diabetes - NIDDM; Hypertension; ph - Immunization history:: Adult Immunizations unknown. - Infectious Disease History:: Denies. - Social history:: Smoking status: Patient denies any tobacco usage or history of. Screenin:[facility] ED Fall Risk Assessment (Adult) History of falling in the last 3 months, ph including since admission Yes- single mechanical fall (1 pt) Confusion or Disorientation No (0 pts) Intoxicated or Sedated No (0 pts) Impaired Gait No (0 pts) Mobility Assist Device Used No (0 pt) Altered Elimination No (0 pt) Score/Fall Risk Level 0 - 2 = Low Risk Oriented to surroundings, Maintained a safe environment, Hourly rounding (assess needs \T\ fall precautionary measures) done, Used ambulatory aids as needed (educated on \T\ assisted with). Abuse screen: Denies threats or abuse. Denies injuries from another. Nutritional screening: No deficits noted. Tuberculosis screening: No symptoms or risk factors identified. Assessment: 13:00 General: Appears in no apparent distress. uncomfortable, Behavior is calm, cooperative. ph Pain: Complains of pain in left subscapular area Pain radiates to diaphragm and left lateral anterior chest. Neuro: Level of Consciousness is awake, alert, obeys commands, Oriented to person, place, time, situation. Cardiovascular: Capillary refill < 3 seconds in bilateral fingers Patient's skin is warm and dry. Respiratory: Airway is patent Respiratory effort is even, unlabored. Derm: Skin is pink, warm \T\ dry. Musculoskeletal: Circulation, motion, and sensation intact. Range of motion: intact in all extremities. Vital Signs: 12:21 BP 136 / 76; Pulse 58; Resp 18; Temp 97.5; Pulse Ox 99% on R/A; Weight 132 kg; Height 5 ph ft. 11 in. ; 14:28 BP 116 / 71; Pulse 58; Resp 18; Pulse Ox 99% on R/A; ph 16:00 BP 124 / 78; Pulse 59; Resp 18; Temp 97.8; Pulse Ox 98% on R/A; ph 12:21 Body Mass Index 40.59 (132.00 kg, 180.34 cm) ph ED Course: 12:16 Patient arrived in ED. ec2 12:16 Phong Herron MD is Attending Physician. ec2 12:21 Marianne Bourne, RN is Primary Nurse. ph 12:23 Triage completed. ph 13:05 CXR XRAY In Process Unspecified. EDMS 13:05 Ribs Left XRAY In Process Unspecified. EDMS 13:05 Shoulder Left (2 View) XRAY In Process Unspecified. EDMS 13:44 Mary Jane Garcia MD is Hospitalizing Provider. ec2 13:47 Arm band placed on Patient placed in an exam room, on a stretcher. ph 13:47 Initial lab(s) drawn, by dc, sent to lab. Inserted saline lock: 20 gauge in left ph antecubital area, using aseptic technique. Blood collected. Flushed with 10 mL NS. 14:28 Patient has correct armband on for positive identification. Bed in low position. Call light in reach. Side rails up X 1. potline monitor on. Pulse ox on. NIBP on. 14:29 No provider procedures requiring assistance completed. Patient admitted, IV remains in ph place. Administered Medications: 13:26 CANCELLED (Physician Discretion): fentanyl (pf)100 mcg IVP once ec2 13:47 Drug: Methocarbamol PO 500 mg PO once Route: PO; ph 14:30 Follow up: Response: No adverse reaction ph 13:48 Drug: Acetaminophen PO 1000 mg PO once Route: PO; ph 17:02 Follow up: Response: No adverse reaction ph 13:48 Drug: Lidoderm Topical Patch 5 % (700 mg/patch) 1 patches Topical once; leave on for 12 ph hours; cover most painful area; may cut into smaller pieces Route: Topical; Site: affected area; 17:02 Follow up: Response: No adverse reaction ph 13:48 Drug: morphine IM 4 mg IM once {Note: GIVEN IVP TO LAC.} Route: IM; Site: Other; ph 14:30 Follow up: Response: No adverse reaction; Pain is decreased ph 14:45 Drug: NS 0.9% IV 1000 ml IV at 1000 ml once; to be given as a bolus over 60 minutes ph Route: IV; Rate: 1000 ml; Site: left antecubital; 16:00 Follow up: Response: No adverse reaction; IV Status: Completed infusion; IV Intake: ph 1000ml 15:15 Drug: Lokelma Powder 10 grams PO once Route: PO; ph 15:30 Follow up: Response: No adverse reaction ph Medication: 14:28 VIS not applicable for this client. ph Intake: 16:00 IV: 1000ml; Total: 1000ml. ph Outcome: 13:44 Decision to Hospitalize by Provider. ec2 17:02 Admitted to Med/surg accompanied by tech, family with patient, via stretcher, with ph chart, 17:02 Condition: stable 17:02 Instructed on the need for admit, 17:03 Patient left the ED. ph Signatures: Dispatcher [employer] Marianne Jackson RN RN ph Phong Herron MD MD ec2 Corrections: (The following items were deleted from the chart) 15:21 15:21 NS 0.9% IV 1000 ml IV at 1000 ml in left antecubital ph ph
[2024-10-04 13:59] LABS: Absolute Basophils 0.1 K/uL (0-0.5); Absolute Eosinophils 0.8 K/uL (0-0.5); Absolute Lymphocytes (CBC) 0.8 K/uL (0.7-4.9); Absolute Monocytes 0.5 K/uL (0.1-1.3); Absolute Neutrophil 7.5 K/uL (1.8-8.0); Eosinophils % 7.7 % (0-4.4); Hematocrit 38.5 % (39.6-49.0); Hemoglobin 12.8 g/dL (13.6-17.9); Lymphocytes % 8.6 % (15.3-44.8); MCH 28.3 pg (27.0-35.0); MCHC 33.3 g/dL (32.0-36.0); MCV 84.8 fL (80-100); MPV 8.7 fL (7.6-11.3); Monocytes % 5.1 % (3.3-12.3); Neutrophils % 77.6 % (41.7-73.7); Nucleated Red Blood Cells % 0.2 % (0-0); Platelets 182 thou/uL (152-406); RBC Red Blood Cell Count 4.54 M/uL (4.33-5.43); Red Cell Distribution Width 14.5 % (12.1-15.2)
[2024-10-04 14:13] LABS: Anion Gap 11.2 mEq/L (5.0-15.0)
[2024-10-04 14:14] LABS: Potassium 6.2 mEq/L (3.5-5.1)
[2024-10-04] MEDS ORDERED: NA CHLORIDE 0.9% 1,000 ML ONE (14:33)
[2024-10-04] MEDS ORDERED: SODIUM ZIRCONIUM CYCLOSILICATE 10 GM/PKT ONE (15:06)
[2024-10-04] MEDS ORDERED: D10W 125 ML IV PRN (16:06)
[2024-10-04] MEDS ORDERED: GLUCAGON 1 MG/VIAL IM PRN (16:06)
[2024-10-04] MEDS ORDERED: HYDRALAZINE HCL 20 MG/ML VIAL IV PRN (16:07)
--- NOTE | 2024-10-04 16:16 | P.HP ---
Certification for Inpatient With expected LOS: >2 Midnights Patient will require the following post-hospital care: None Practitioner: I am a practitioner with admitting privileges, knowledge of patient current condition, hospital course, and medical plan of care. Services: Services provided to patient in accordance with Admission requirements found in Title 42 Section 412.3 of the Code of Federal Regulations Patient History Date of Service: 10/04/24 Reason for admission: Fall and rib fractures History of Present Illness: 69-year-old patient presented with fall, he was working in the lawn, he tripped over and had a fall and complaining of left-sided rib pain, he was found to have multiple rib fractures so we were asked to admit him. He denies any head trauma, no loss of consciousness. Other than left-sided rib pain, he has chronic diarrhea after colon resection, he denies any other acute complaints. No headache or blackouts. No double vision or blurry vision. No cough or sputum production. No shortness of breath. No nausea or vomiting. No abdominal pain. No blood in the urine or stool. No fever. No lower extremity edema. No joint pains. No recent change in the weight. Review of systems: All other 10 point review of systems are negative other than as mentioned above. Allergies and medications: Reviewed, as per med rec in EMR. Past medical history: Chronic anemia, CKD 4, diabetes mellitus type 2, hypertension, enlarged heart Past surgical history: Cholecystectomy, bilateral knee replacement, left hip replacement Social history: No smoking or alcohol or drugs Family history: No family history of IA or CVA Physical examination: Vital signs: Reviewed, as per EMR. General appearance: Alert and comfortable HEENT: Extraocular movements intact, oral mucosa moist. CVS: Normal S1-S2, left-sided rib pain present Lungs: Clear to auscultation bilaterally Abdomen: Soft, bowel sounds present, no tenderness Extremities: No lower extremity edema INTERNAL REVIEW AND AUDIT COMPLIANCE: Moves all 4 extremities, no obvious focal deficits Musculoskeletal: No obvious joint swelling or tenderness other than rib pain Allergies No Known Allergies Allergy (Unverified 02/28/12 09:27) Home Medications: Aspirin [Aspirin EC 81 MG] 162 mg PO DAILY #1 tablet. 02/29/12 Celecoxib [Celebrex] 1 tab PO DAILY 02/29/12 Hydrochlorothiazide 1 tab PO DAILY 02/29/12 Naproxen Sodium [Aleve] 3 tab PO DAILY #1 02/29/12 Acetaminophen [Tylenol Extra Strength] 500 mg PO Q4HP PRN 06/12/12 Amlodipine Besylate/Benazepril [Amlodipine-Benazepril 5-20 mg] 1 each PO DAILY 06/12/12 Home Med [Home or Non Formulary Med*] 1 estella TOP BIDP PRN 06/12/12 Metformin HCl [Metformin ER Osmotic] 500 mg PO BID 06/12/12 Metoprolol Tartrate [Lopressor*] 50 mg PO BID 06/12/12 Omeprazole 40 mg PO DAILY 06/12/12 Promethazine Tab [Phenergan*] 1 - 2 tab PO Q6HP PRN 06/12/12 Ranitidine HCl 300 mg PO DAILY 06/12/12 Hydrocodone Bit/Acetaminophen [Vicodin Es 7.5-750 mg Tablet] 1 each PO Q4HP PRN #40 tablet 06/16/12 Ondansetron [Zofran (Odt)*] 4 mg PO Q6HP PRN #10 tab 06/16/12 Ciprofloxacin HCl [Cipro] 250 mg PO BID 7 Days #14 tab 12/09/23 - Past Medical/Surgical History Diabetic: Yes -: Diabetes, hypertension, hyperlipidemia - Social History Alcohol use: No CD- Drugs: No Caffeine use: No Physical Examination - Studies Laboratory Data (last 24 hrs) 10/04/24 10/04/24 13:45 13:45 WBC 9.70 Hgb 12.8 L Hct 38.5 L Plt Count 182 Sodium 135 L Potassium 6.2 H* BUN 65 H Creatinine 2.51 H Glucose 125 H Assessment and Plan - Plan 1. Left 2, 6, 7, and eighth rib fractures: As needed pain medications for now, surgical consult was requested, I will put him on incentive spirometry, I will start both oral and IV pain medications, discharge plan will depending on pain control. 2. Hyperkalemia: Probably secondary to CKD, he was given Lokelma and IV fluids in the emergency room, continue fluids, monitor BMP closely. Nephrology consult requested. 3. Chronic anemia: Probably secondary to CKD, monitor closely 4. CKD 4: Monitor closely 5. Diabetes mellitus type 2: Sliding scale insulin for now, diabetic diet, check A1c, monitor sugars closely. 6. Hypertension: Continue home medications 7. Enlarged heart as per patient: No signs of acute heart failure at this time, follow-up with PCP and cardiology. DVT prophylaxis: Heparin CODE STATUS: He would like to be full code Advanced directives: His Ana is the POA. I did discuss all the above mentioned plan with the patient and his at bedside, they both understand and agrees with the plan. - Advance Directives Does patient have a Living Will: No Does patient have a Durable POA for Healthcare: No
[2024-10-04] MEDS: INSULIN REGULAR (HUMAN) 100 UNIT/ML SQ SCH (16:30)
[2024-10-04] MEDS ORDERED: MORPHINE 2 MG/ML SYR ONE (16:32)
[2024-10-04] MEDS: MORPHINE 2 MG/ML SYR IV PRN (16:35)
[2024-10-04 17:12] VITALS: O2SAT 99; BMI 40.6
[2024-10-04] MEDS ORDERED: FLU (Fluarix Triv) TS24-25(6MOS UP)/PF 45 MCG/0.5 ML Syringe IM ONE (17:45)
[2024-10-04] MEDS: HYDROCODONE/APAP 5/325 MG TAB PO PRN (17:52)
[2024-10-04] MEDS: NA CHLORIDE 0.9% 1,000 ML IV SCH (17:52)
[2024-10-04] MEDS: HEPARIN 5000 UNIT/ML 1 ML VIAL SQ SCH (17:53)
[2024-10-04 18:35] LABS: Anion Gap 9.1 mEq/L (5.0-15.0)
[2024-10-04 18:36] LABS: Potassium 6.1 mEq/L (3.5-5.1)
[2024-10-04] MEDS ORDERED: ALBUTEROL 2.5 MG/3 ML NEB SOL NEB ONE (22:42)
[2024-10-04] MEDS: FLUDROCORTISONE 0.1 MG TAB PO SCH (22:53)
[2024-10-04] MEDS: FUROSEMIDE 40 MG TABLET PO ONE (22:56)
[2024-10-05 06:48] LABS: Absolute Basophils 0.1 K/uL (0-0.5); Absolute Eosinophils 0.4 K/uL (0-0.5); Absolute Monocytes 0.7 K/uL (0.1-1.3); Absolute Neutrophil 6.2 K/uL (1.8-8.0); Basophils % 1.2 % (0-1.3); Eosinophils % 4.7 % (0-4.4); Hemoglobin 11.8 g/dL (13.6-17.9); Lymphocytes % 11.4 % (15.3-44.8); MCH 28.7 pg (27.0-35.0); MCHC 33.5 g/dL (32.0-36.0); MCV 85.7 fL (80-100); MPV 8.3 fL (7.6-11.3); Monocytes % 8.6 % (3.3-12.3); Neutrophils % 74.1 % (41.7-73.7); Nucleated Red Blood Cells % 0.1 % (0-0); Platelets 187 thou/uL (152-406); RBC Red Blood Cell Count 4.09 M/uL (4.33-5.43); Red Cell Distribution Width 14.4 % (12.1-15.2)
[2024-10-05 07:02] LABS: Anion Gap 7.9 mEq/L (5.0-15.0); Potassium 4.9 mEq/L (3.5-5.1)
[2024-10-05] MEDS: SODIUM ZIRCONIUM CYCLOSILICATE 10 GM/PKT PO SCH (09:00)
--- NOTE | 2024-10-05 12:24 | P.PN ---
Subjective Date of Service: 10/05/24 Chief Complaint: Fall and rib fractures Subjective: Improving (Patient is improving but continues to still have some degree of chest pain requiring IV pain medication with deep inspiration.) Physical Examination - Vital Signs Temperature: 97.9 F Blood Pressure: 134/60 Pulse: 75 Respirations: 16 Pulse Ox (%): 91 - Physical Exam General: Alert, In no apparent distress, Oriented x3, Cooperative Musculoskeletal: Other (Left-sided chest wall tenderness.) - Studies Laboratory Data (last 24 hrs) 10/04/24 10/04/24 13:45 13:45 WBC 9.70 Hgb 12.8 L Hct 38.5 L Plt Count 182 Sodium 135 L Potassium 6.2 H* BUN 65 H Creatinine 2.51 H Glucose 125 H Assessment And Plan - Current Problems (Diagnosis) (1) Multiple rib fractures Current Visit: Yes Status: Acute Plan: Patient is a 69-year-old male who had a fall from standing with multiple left- sided rib fractures -Continue current strategy. -Medical management per primary team. -Serial chest exams -Daily chest x-rays -Incentive spirometry -Pain management -transition to p.o. if possible -Give patient sling to wear to remind him to protect the affected side
--- NOTE | 2024-10-05 14:47 | P.PN ---
Subjective Date of Service: 10/05/24 Chief Complaint: Fall and rib fractures Subjective: No chest pain or shortness of breath other than left-sided rib pain which is improving. No nausea or vomiting. No abdominal pain. No obvious bleeding. Looks comfortable in the bed. Objective: General appearance: Alert and comfortable CVS: Normal S1 and S2 Lungs: Clear to auscultation bilaterally Abdomen: Soft, bowel sounds present, no tenderness Extremities: No lower extremity edema Physical Examination - Vital Signs Temperature: 97.9 F Blood Pressure: 134/60 Pulse: 75 Respirations: 16 Pulse Ox (%): 91 Assessment And Plan - Plan 1. Left 2, 6, 7, and eighth rib fractures: As needed pain medications for now, surgical consult was requested, continue incentive spirometry, continue both oral and IV pain medications, discharge plan will depending on pain control. 2. Hyperkalemia: Probably secondary to CKD, he was given Lokelma and IV fluids in the emergency room, continue fluids, K better - Nephrology consult requested. 3. Chronic anemia: Probably secondary to CKD, monitor closely 4. CKD 4: Monitor closely 5. Diabetes mellitus type 2: Sliding scale insulin for now, diabetic diet, monitor sugars closely. 6. Hypertension: Continue home medications 7. Enlarged heart as per patient: No signs of acute heart failure at this time, follow-up with PCP and cardiology. DVT prophylaxis: Heparin CODE STATUS: He would like to be full code Advanced directives: His Ana is the POA. I did discuss all the above mentioned plan with the patient, he understand and agrees with the plan. DC home later today or tomorrow if pain controlled and cleared by surgery and nephrology.
--- NOTE | 2024-10-05 17:49 | CON ---
Date of Consultation: 10/05/2024 Reason For Consultation: Elevated BUN and creatinine. Fluid management. History Of Present Illness: This is a 69-year-old gentleman with significant past medical history of diabetes since 2018 complicated with neuropathy, no retinopathy, congestive heart failure, nonischemic as by the patient, nephrolithiasis, hypertension, the patient was in his regular state of health. Apparently, patient had a mechanical fall as he was trying to lean over wheeled away from him. He landed on his chest with rib fracture. The patient denied taking any nonsteroidal. No IV contrast. The patient found to have elevation in BUN and creatinine. For that reason, we have been consulted. As I mentioned, the patient denied taking any nonsteroidal. No recent exposure for any contrast. Reviewing the record for the patient back in June 2024, creatinine 2 with GFR of 35. Upon arrival to the hospital, creatinine 2.4 with GFR 27. For that reason, we have been consulted. Past Medical History: Includes: 1. Hypertension. 2. Nonischemic cardiomyopathy. 3. Diabetes since 1979 complicated with neuropathy, no retinopathy. 4. Nephrolithiasis. Past Surgical History: Include cholecystectomy, knee replacement, and left hip replacement. Social History: Denied smoking. Denied drinking. Denied drugs abuse. Family History: Positive for hypertension. Allergies: Tramadol Review of Systems: Head and Neck: No red eye. No ear pain. GI: No nausea. No vomiting. : No polyuria. No dysuria. No hematuria. 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 Respiratory: No shortness of breath. Has chest pain. Cardiovascular: No palpitation. No orthopnea. Endocrine: No polydipsia. Skin: No rash. Physical Examination: General: When I saw the patient, the patient lying in bed. Vital Signs: Blood pressure 134/60, pulse of 75, afebrile. Chest: Clear to auscultation. Heart: S1, S2. Regular. Abdomen: Soft, nontender. Extremities: No edema. Neurologic: Alert. No focality. Laboratory Data: For the patient, back in June 2024, creatinine 2, GFR of 35. Yesterday, upon admission, sodium 135, potassium 6.2, bicarb 22, BUN 65, creatinine 2.5, GFR 27. Urinalysis positive for infection, wbc more than 50, +[address] abdomen: Atrophic left kidney, no hydronephrosis, multiple cysts, largest 3.8. Assessment And Plan: 1. Acute kidney injury secondary to prerenal, secondary to cardiorenal, superimposed with Celebrex use and spironolactone. Looked to me still on the dry side. I am going to go ahead and start the patient on hydration and we will monitor the patient. We will send for the workup. 2. Chronic kidney disease, mostly secondary to renal vascular disease with atrophic right kidney. Blood pressure been stable. Kidney function, marginal fluctuation. I do not see the need for any workup for angiogram for the time being unless if it is recommended further as kidney function decline or has uncontrolled blood pressure, which is none of them exist for the time being. Diabetes, nephropathy, with acute kidney injury as above with the presence of hyperkalemia. Discontinue spironolactone. Continue hydration and we will follow up. 3. Hyperkalemia secondary to renal failure, recovered, resolved. 4. Urinary tract infection. Continue current antibiotic. Complicated urinary tract infection has been ruled out. Thank you for allowing us to participate in the care of your patient. time spent examining the patient [id number] reviewing data lab and the radiology placing order discussing the case with the patient discussing the case with the steam powerplant supervisor including hospitalist and nursing staff more than 75-minute DANIELLE Voice ID: [id number] Report ID: [id number] SCAR
[2024-10-05] MEDS: ONDANSETRON 4 MG/2 ML VIAL IV PRN (21:06)
[2024-10-06 04:27] LABS: Absolute Basophils 0.1 K/uL (0-0.5); Absolute Eosinophils 0.6 K/uL (0-0.5); Absolute Lymphocytes (CBC) 0.8 K/uL (0.7-4.9); Absolute Monocytes 0.9 K/uL (0.1-1.3); Absolute Neutrophil 7.8 K/uL (1.8-8.0); Basophils % 0.7 % (0-1.3); Eosinophils % 5.6 % (0-4.4); Hematocrit 33.9 % (39.6-49.0); Hemoglobin 11.4 g/dL (13.6-17.9); Lymphocytes % 8.1 % (15.3-44.8); MCH 28.8 pg (27.0-35.0); MCHC 33.7 g/dL (32.0-36.0); MCV 85.5 fL (80-100); MPV 8.4 fL (7.6-11.3); Monocytes % 8.8 % (3.3-12.3); Neutrophils % 76.8 % (41.7-73.7); Nucleated Red Blood Cells % 0.2 % (0-0); Platelets 163 thou/uL (152-406); RBC Red Blood Cell Count 3.96 M/uL (4.33-5.43); Red Cell Distribution Width 14.9 % (12.1-15.2)
[2024-10-06 04:55] LABS: Albumin 3.3 g/dL (3.4-5.0); Anion Gap 10.8 mEq/L (5.0-15.0); Phosphorus 4.3 mg/dL (2.5-4.9); Potassium 4.8 mEq/L (3.5-5.1); Thyroid Stimulating Hormone 0.855 uIU/mL (0.358-3.740); Uric Acid 9.3 mg/dL (3.5-7.2)
--- NOTE | 2024-10-06 07:40 | RAD REPORT ---
EXAMINATION: ONE VIEW CHEST XR CLINICAL INDICATION: f/u rib fractures TECHNIQUE: Frontal chest projection is submitted. Examination is limited by patient positioning and t echnique. COMPARISON: 10/04/2024 FINDINGS: The lungs are grossly clear. No pneumothorax. The heart is upper limit normal in size. Minimally disp laced left posterior rib fractures.
[2024-10-06 12:24] VITALS: BP 136/63; TEMP 98.6
--- NOTE | 2024-10-06 12:24 | P.DS ---
Admission Date: 10/04/24 Discharge Date: 10/06/24 Disposition: ROUTINE DISCHARGE Discharge Condition: GOOD Reason for Admission: Fall and rib fractures Hospital Course: 1. Left 2, 6, 7, and eighth rib fractures: As needed pain medications for now, surgical consult apprecaited, conservative Mx for now, continue incentive spirometry -DC home on oral pain meds 2. Hyperkalemia: Probably secondary to CKD, he was given Lokelma and IV fluids in the emergency room, K better - Nephrology consult recs appreciated, o/p f/u 3. Chronic anemia: Probably secondary to CKD, monitor closely 4. CKD 4: Monitor closely 5. Diabetes mellitus type 2 6. Hypertension: Continue home medications 7. Enlarged heart as per patient: No signs of acute heart failure at this time, follow-up with PCP and cardiology. 69-year-old patient admitted with fall and left-sided rib fractures, surgical team was consulted, they recommended medical management, he was started on both oral and IV pain medications, his pain is improving, I discussed with surgical team this morning, they are okay to discharge the patient, he has chronic kidney disease and also hyperkalemia, with the fluids and Lokelma his potassium is better, I discussed with the audio production instructor at this morning, no need for Lokelma at discharge, they are okay to continue the YVONNE inhibitors, otherwise no other acute issues going on so I am planning to discharge him to go home. Subjective: No chest pain or shortness of breath, left-sided rib pain improving. No nausea or vomiting. No abdominal pain. No obvious bleeding. Looks comfortable in the bed. Objective: General appearance: Alert and comfortable CVS: Normal S1 and S2 Lungs: Clear to auscultation bilaterally Abdomen: Soft, bowel sounds present, no tenderness Extremities: No lower extremity edema Vital Signs/Physical Exam: Temp Pulse Resp BP Pulse Ox 98.0 F 86 18 149/69 H 90 L 10/06/24 08:00 10/06/24 08:00 10/06/24 08:26 10/06/24 08:00 10/06/24 08:26 Laboratory Data at Discharge: WBC 10.20 thou/uL (4.3-10.9) 10/06/24 04:13 Hgb 11.4 g/dL (13.6-17.9) L 10/06/24 04:13 Hct 33.9 % (39.6-49.0) L 10/06/24 04:13 Plt Count 163 thou/uL (152-406) 10/06/24 04:13 Sodium 138 mEq/L (136-145) 10/06/24 04:13 Potassium 4.8 mEq/L (3.5-5.1) 10/06/24 04:13 BUN 58 mg/dL (7-18) H 10/06/24 04:13 Creatinine 2.28 mg/dL (0.70-1.30) H 10/06/24 04:13 Glucose 124 mg/dL (74-106) H 10/06/24 04:13 Uric Acid 9.3 mg/dL (3.5-7.2) H 10/06/24 04:13 Phosphorus 4.3 mg/dL (2.5-4.9) 10/06/24 04:13 Home Medications: Celecoxib [Celebrex] 200 mg PO DAILY 02/29/12 Hydrochlorothiazide 25 mg PO DAILY 02/29/12 Acetaminophen [Tylenol Extra Strength] 500 mg PO Q4HP PRN 06/12/12 Amlodipine Besylate/Benazepril [Amlodipine-Benazepril 5-20 mg] 20 - 60 mg PO DAILY 06/12/12 Metoprolol Tartrate [Lopressor*] 50 mg PO BID 06/12/12 Aspirin [Aspirin EC 81 MG] 81 mg PO DAILY 10/04/24 Glimepiride 2 mg PO BID 10/04/24 Magnesium Oxide 500 mg PO BID 10/04/24 Semaglutide [Ozempic] 2 mg SQ EVERY 7TH DAY 10/04/24 Hydrocodone 5/APAP 325 [[place] 5/325*] 1 tab PO Q6H PRN #20 tab 10/06/24 New Medications: Hydrocodone 5/APAP 325 [[place] 5/325*] 1 tab PO Q6H PRN #20 tab PRN Reason: Pain Scale 5-7 (Moderate) Followup: NONE,NONE [Primary Care Provider] - 1 Week (f/u with PCP in 5-7 days with CBC and CMP) Dejuan Cueva MD [ACTIVE - CAN ADMIT] - (f/u in 2-3 weeks)
--- NOTE | 2024-10-06 12:39 | PN ---
Date of Progress Note: 10/06/2024 Subjective: The patient was admitted to the hospital after a fall, mechanical. 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 The patient had acute kidney injury on chronic kidney disease. Rhabdomyolysis h as been ruled out. Physical Examination: Vital Signs: When I saw the patient, blood pressure 149/69, pulse of 86, afebrile. Chest: Clear to auscultation. Heart: S1, S2. Systolic murmur. Abdomen: Soft, nontender. Extremities: Trace edema. Neurologic: Alert. No focality. Laboratory Data: Hemoglobin 11.4. Sodium 138; potassium 4.8; bicarb 23; BUN 58; creatinine 2.2, ryder nding down; GFR 30; calcium 9.3; phosphorus 4.3; albumin 3.3; corrected calcium is 9.5; PTH 62. Assessment And Plan: 1. Acute kidney injury secondary to prerenal and cardiorenal, superimposed with Celebrex use and spir onolactone, on the recovery phase, back close to baseline. The patient will discontinue IV fluid. T he patient okay from the renal standpoint for discharge planning. 2. 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 3. Nephrolithiasis, nonobstructing. Largest on the left 2.1 cm. We will continue to monitor. 4. Multiple renal cysts, largest on the left 3.8 cm bilateral. We will consider measuring total kidn ey volume and next outpatient to evaluate if the patient is a candidate for any Jynarque. 5. Fall, mechanical, as by primary. 6. Hyperkalemia secondary to renal failure, recovered, resolved. NESS/JOJO Voice ID: [id number] Report ID: [id number]
--- NOTE | 2024-10-07 08:48 | EKG ---
Test Date: 2024-10-04 Test Time: 14:23:10 Tax Preparer: MALGORZATA MEASUREMENT RESULTS: Intervals: Rate: 59 ND: 194 QRSD: 148 QT: 414 QTc: 409 [place]: P: 40 ND: 194 QRS: -30 T: 4 INTERPRETIVE STATEMENTS: Sinus bradycardia Left axis deviation Right bundle branch block Abnormal ECG Compared to ECG 12/08/2023 21:49:08 Left-axis deviation now present Sinus rhythm no longer present Left anterior fascicular block no longer present Bifascicular block no longer present Electronically Signed On 10-07-24 08:40:27 CDT by Brain Cheek
== END 2024-10-06 14:20 | disposition home or self-care (01) | DRG 184 ==
LOC: ER 12:15 → ERHOLD 16:01 → 2ND 16:36
PROVIDERS: ADMIT Hospitalist; ATTEND Hospitalist
DX: S22.42XA Multiple fractures of ribs, left side, initial encounter for closed fracture (principal); I13.0 Hypertensive heart and chronic kidney disease with heart failure and stage 1 through stage 4 chronic kidney disease, or unspecified chronic kidney disease; N18.4 Chronic kidney disease, stage 4 (severe); N17.9 Acute kidney failure, unspecified; I42.9 Cardiomyopathy, unspecified; N39.0 Urinary tract infection, site not specified; E87.5 Hyperkalemia; E11.22 Type 2 diabetes mellitus with diabetic chronic kidney disease; Z79.4 Long term (current) use of insulin; E11.40 Type 2 diabetes mellitus with diabetic neuropathy, unspecified; M19.90 Unspecified osteoarthritis, unspecified site; D64.9 Anemia, unspecified; Z90.49 Acquired absence of other specified parts of digestive tract; E78.5 Hyperlipidemia, unspecified
CPT/HCPCS: 36415; 71045; 80048; 80069; 82550; 82947; 83036; 83520; 83970; 84165; 84443; 84550; 85025; 86021; 86038; 86160; 86225; 86803; 93005; 96360; 96372; 99285; J1644; J2003; J2270; J2405; J7030